=== PATIENT | female | born 1980 | race American Indian/Alaskan Native ===

== ENCOUNTER 2018-12-14 10:33 | Day surgery (SDC) | payer OTHER ==
--- NOTE | 2018-12-14 11:04 | Anesthesia Day of Surgery ---
Anesthesia Day of Surgery - Day of Surgery Patient Examined: Yes Patient H&P Reviewed: Yes Patient is NPO: Yes
--- NOTE | 2018-12-14 11:06 | Anesthesia Consultation ---
Anesthesia Consult and Med Hx Date of service: 12/14/18 - Airway Anesthetic Teeth Evaluation: Good, Crowns ROM Head & Neck: Adequate Mental/Hyoid Distance: Adequate Mallampati Class: Class II Intubation Access Assessment: Good - Cardiac Exam Anesthetic Concerns: Prolonged emergence. Has port. Breast CA on chemo - Pre-Operative Health Status ASA Pre-Surgery Classification: ASA2 Proposed Anesthetic Plan: MAC - Pulmonary Hx Asthma: Yes - Gastrointestinal Hx Gastroesophageal Reflux Disease: Yes - Other Systems Hx Cancer: Yes (Breast; on chemo; no surgery and can use both arms BP/IV)
[2018-12-14] MEDS ORDERED: NACL 0.9% 1000 ML 1,000 ML ONE (11:10)
[2018-12-14] MEDS ORDERED: WATER FOR IRRIG STERILE IR ONE (11:27)
[2018-12-14] MEDS ORDERED: WATER FOR IRRIG STERILE ONE (11:27)
[2018-12-14] MEDS ORDERED: VERSED ONE (11:39)
[2018-12-14] MEDS ORDERED: DIPRIVAN 10 MG/ML IV ONE ×2 (11:40)
--- NOTE | 2018-12-14 12:10 | Procedure Note ---
Date of procedure: 12/14/18 Pre-op diagnosis: Hematochezia and GERD Post-op diagnosis: other (Mild to Moderate distal Erosive Esophagitis/ Gastritis/ Minor, Internal Hemorrhoid (possible source of the lower GI Bleeding but not prominent enough for Hemorrhoidal Banding). Minor, Left Colon Diverticular Disease) Procedure: EGD with Biopsy/ Colonoscopy [place] [facility] [place]: BEVERLY CONTRERAS Estimated blood loss: minimal Pathology: list Specimen disposition: to lab Condition: stable Disposition: same day (Treat with PPI and Anusol HC supp, encourage fiber intake. Avoid aspirin and NSAID for 5 days and follow up in 1 to 2 weeks ([phone]).)
--- NOTE | 2018-12-14 15:38 | Operative Report ---
PROCEDURE: Colonoscopy. INDICATIONS: This is a 38-year-old -[place] female with a recent history of left-sided breast cancer, family history of cancer, who has been having some lower GI bleeding. Also, has some complaints of GERD symptoms. EGD done prior to the colonoscopy had shown mild to moderate distal erosive esophagitis and some gastritis. Colonoscopy was done to make sure there was not any significant lower GI pathology accounting for the patient's complaints. DESCRIPTION OF PROCEDURE: Procedure was done after getting informed consent with MAC anesthesia. Initial rectal exam was unremarkable. Instrument was passed through the rectum onto the cecum, which was identified by the ileocecal valve and the appendiceal orifice. Visualization was fair to good. The terminal ileum was intubated showed normal mucosa. There was no endoscopic evidence of any ileitis. The scope was retroflexed in the cecum appeared normal. The cecum, ascending colon and transverse colon showed normal mucosa. There were a few minor diverticula noted in the descending colon. The sigmoid colon appeared normal and the rectum showed minor internal hemorrhoid, which may have accounted for the patient's bleeding, but not significant enough for banding. ASSESSMENT: Hematochezia secondary to minor internal hemorrhoids that were not prominent enough for banding. Minor diverticular disease. There were no biopsies done during the colonoscopy and no bleeding or complications associated with the procedure. The patient will be treated with Anusol-HC suppository and encouraged to take fiber supplements, avoid aspirin and aspirin-related products for the next few days because of biopsies done during the EGD and asked to follow up in the office in 1-2 weeks' time. The procedure was done in the GI lab in the presence of GLORIA Oakley. JOB# [id number] STACI/ISAC BARBER
--- NOTE | 2018-12-14 16:17 | Operative Report ---
PROCEDURE: Esophagogastroduodenoscopy. INDICATIONS: This is a 38-year-old -[place] female who has underlying history of left-sided breast cancer for which she has had surgery as well as chemo and radiation treatment. She also gives a family history of cancer and recently has been noticed to have GERD symptoms as well as associated GI bleeding. She has a prior history of cholecystectomy. EGD was done to make sure there was not any significant upper GI pathology present. DESCRIPTION OF PROCEDURE: The procedure was done after getting informed consent with MAC anesthesia. Instrument was passed through the hypopharynx into the esophagus, which showed some mild to moderate distal erosive esophagitis. Biopsy was done from the distal esophagus. Stomach showed antral gastritis. Biopsy was done from the gastric antrum, gastric body and angularis incisura to assess for H. pylori and atrophic gastritis. The pylorus is patent. The duodenum in the first and the second portion appeared normal. There was minimal bleeding from the biopsy sites and no complications associated with the procedure. ASSESSMENT: Gastroesophageal reflux disease symptoms, abdominal pain, recent history of left-sided breast cancer, family history of cancer, mild to moderate distal erosive esophagitis, gastritis. PLAN: To treat the patient with PPI, have the patient to avoid aspirin and aspirin-related products for the next few days and follow up in the office in 1-2 weeks' time. A colonoscopy will also be done because of the recent complaints of lower GI bleeding and recent history of cancer and family history of cancer. The procedure was done in the GI lab in the presence of GLORIA Oakley. There were no complications and very minimal bleeding associated with the procedure. JOB# [id number] STACI/ISAC BARBER
[2018-12-14 17:16] VITALS: BP 114/77
[2018-12-14] MEDS ORDERED: NACL 0.9% 1000 ML 1,000 ML IV SCH (18:00)
== END 2018-12-14 10:34 | disposition home or self-care (01) ==
LOC: GIO 10:33
DX: K29.50 Unspecified chronic gastritis without bleeding (principal); K57.30 Diverticulosis of large intestine without perforation or abscess without bleeding; K21.0 Gastro-esophageal reflux disease with esophagitis; K64.8 Other hemorrhoids; K92.1 Melena; J45.909 Unspecified asthma, uncomplicated; Z90.49 Acquired absence of other specified parts of digestive tract; Z85.3 Personal history of malignant neoplasm of breast; Z80.8 Family history of malignant neoplasm of other organs or systems; Z91.040 Latex allergy status; Z88.0 Allergy status to penicillin; Z88.2 Allergy status to sulfonamides; Z88.8 Allergy status to other drugs, medicaments and biological substances; Z91.018 Allergy to other foods; Z79.899 Other long term (current) drug therapy; Z98.51 Tubal ligation status; Z98.890 Other specified postprocedural states
CPT/HCPCS: 43239; 45378; 88305; 88342; J2250; J2704; J7030